=== PATIENT | male | born 1955 | race Caucasian/White ===

== ENCOUNTER → 2024-01-16 09:14 | Outpatient (REF) | payer MEDICARE, OTHER, SELFPAY | LOC: HWRAD 09:14 | PROVIDERS: ATTENDING PHYSICIAN Family Medicine | DX: H57.11 Ocular pain, right eye (principal) | CPT/HCPCS: 70496; 70498; Q9967 ==

== ENCOUNTER → 2024-03-05 12:50 | Outpatient (REF) | payer MEDICARE, OTHER, SELFPAY | LOC: HWRCS 12:50 | PROVIDERS: ATTENDING PHYSICIAN Internal Medicine Cardiovascular Disease; FAMILY PHYSICIAN Family Medicine | DX: R06.09 Other forms of dyspnea (principal) | CPT/HCPCS: 93306 ==

== ENCOUNTER → 2024-03-07 10:56 | Outpatient (REF) | payer MEDICARE, OTHER, SELFPAY | LOC: DHCBC/DCA 10:56 | PROVIDERS: ATTENDING PHYSICIAN Internal Medicine Cardiovascular Disease; FAMILY PHYSICIAN Family Medicine | DX: R06.09 Other forms of dyspnea (principal) | CPT/HCPCS: 78452; 93017; A9500 ==

== ENCOUNTER → 2024-08-14 10:42 | Outpatient (REF) | payer MEDICARE, OTHER, SELFPAY | LOC: HWRAD 10:42 | PROVIDERS: ATTENDING PHYSICIAN Internal Medicine Critical Care Medicine; FAMILY PHYSICIAN Internal Medicine Critical Care Medicine | DX: Z87.891 Personal history of nicotine dependence (principal) | CPT/HCPCS: 71271 ==

== ENCOUNTER 2025-05-15 13:11 | Emergency (ER) | payer MEDICARE, OTHER, SELFPAY ==
[2025-05-15 13:26] VITALS: BP 141/75
--- NOTE | 2025-05-15 14:31 | ED.GENMED ---
History of Present Illness
General
Chief Complaint: Chest Problem
Time Seen by Provider: 05/15/25 14:22
History of Present Illness
History of Present Illness:
70-year-old male presents to the emergency department for evaluation of right-sided chest pain for the past 4 days. He notes that this began shortly after swimming and carrying a suitcase that was quite heavy. Pain is worse whenever he moves the
right arm or twists his torso. No pleuritic pain. Has taken Tylenol without relief. No shortness of breath, leg swelling, or exertional chest pain.
Review of Systems
Review of Systems
Allergies reviewed?: Yes
All Other Systems: ROS reviewed and negative except as documented in HPI and ROS
Phy Exam
Physical Exam
Physical Exam:
GEN: Well appearing, NAD, WDWN
HEENT: Oral mucosa moist, no scleral icterus
Cardiac: Regular rate and rhythm, no murmurs
Chest: Significantly easily reproduced tenderness to the right pectoral, worse with abduction of the right shoulder
Lung: No respiratory distress, no tachypnea
MSK: No gross deformity or injuries
Skin: Good color, no pallor or jaundice, no rashes
Neuro: AO x3, moves all extremities freely
Psych: Calm, cooperative
Course
Orders/Labs/Results
Orders:
Orders
05/15/25 13:12
ECG [Electrocardiogram (*1)] Urgent
Reason for Study: Chest Pain
EKG- Treatment ONCE
Vital Signs
Initial and Last Documented VS:
Initial Vital Signs
Temp Pulse Resp BP Pulse Ox
98.7 F 85 16 141/75 95
05/15/25 13:26 05/15/25 13:26 05/15/25 13:26 05/15/25 13:26 05/15/25 13:26
Last Documented Vital Signs
Temp Pulse Resp BP Pulse Ox
98.7 F 85 16 141/75 95
05/15/25 13:26 05/15/25 13:26 05/15/25 13:26 05/15/25 13:26 05/15/25 14:31
MDM/Problems Addressed
MDM/Problems Addressed:
Chest pain is clearly reproduced on exam with certain stretches or resisted motions of the right pectoral muscle, EKG is reassuring, low clinical suspicion for internal/cardiac/pulmonary etiology, recommend NSAIDs for short course
*Pulse Oximetry
SaO2: 95
Oxygen Mode of Delivery: Room air
Patient hypoxic: no
*Critical Care Note
Total Time (30-74mins, 75-104mins- exclusive of procedures): Not Applicable
ED Attending Note
-
Portions of this chart may have been created with voice recognition software.� Occasional wrong word or��sound alike� substitutions may have occurred due to the inherent limitations of voice recognition software.
Discharge Plan
Departure
Patient Disposition: Home (Routine Discharge)
Date of Disposition: 05/15/25
Time of Disposition: 14:31
Patient with high blood pressure during this ER visit?: No
Discharge Problem:
Chest wall muscle strain
Instructions: Muscle strain - ED discharge instructions
Prescriptions:
New
diclofenac sodium 75 mg tablet,delayed release (DR/EC)
75 mg PO BID PRN (Reason: Pain) Qty: 10 0RF
Referrals:
Kan Yang DO [Family Provider, Family Practice]
Interventions
Interventions:
*Risk Screen - Suicide Last Done: 05/15/25 13:26
*General Assessment Last Done: 05/15/25 14:25
*Neglect/Abuse Screening Last Done: 05/15/25 13:26
*ED COVID-19 Vaccine History Last Done: 05/15/25 14:25
*Nursing Disposition Last Done: 05/15/25 14:39
ED- Cardiac Assessment Last Done: 05/15/25 14:25
ED- Pulmonary Assessment Last Done: 05/15/25 14:25
Discharge Date and Time
Discharge Date/Time: 05/15/25 14:39
Print Language: MOLDOVAN
== END 2025-05-15 14:39 | disposition home or self-care (01) ==
LOC: EMR 13:11
PROVIDERS: EMERGENCY PHYSICIAN Emergency Medicine; FAMILY PHYSICIAN Family Medicine
DX: S29.011A Strain of muscle and tendon of front wall of thorax, initial encounter (principal); X58.XXXA Exposure to other specified factors, initial encounter
CPT/HCPCS: 99283; 93005